=== PATIENT | male | born 1970 | race Caucasian/White ===

== ENCOUNTER 2020-03-02 14:19 | Emergency (ER) | payer BC, SELFPAY ==
[2020-03-02 14:51] VITALS: BP 137/58; PULSE 69; RESP 18; TEMP 36.4; O2SAT 99; BMI 29.9
--- NOTE | 2020-03-02 15:25 | HMH.EDUTC ---
[facility] [place] Clinical Impression: COVID-19 virus test result unknown Disposition: Home, Self-Care Condition on Discharge: Good Instructions: Preventing the Spread of Coronavirus Discharge Instructions Additional Instructions: self quarantine until test result are known Referrals: Allan Reeves [Primary Care Provider] - Time of Disposition: 15:28 Medical Decision Making - Ruben Inquiry Pt receiving controlled substance: No Vital Signs: 03/02/20 14:51 Temperature 97.6 F Temperature Source Oral Pulse Rate [Radial] 69 Respiratory Rate 18 Blood Pressure [Right Arm] 137/58 L Blood Pressure Mean [Right Arm] 84 Blood Pressure Source [Right Arm] Automatic Cuff Blood Pressure Position [Right Arm] Sitting 02 Sat by Pulse Oximetry 99 Oxygen Delivery Method Room Air Orders (Tests/Meds): ORDERS Category Date Time Status Coronavirus 19 Swab (OUTPT) Routine Lab 03/02/20 14:30 Ordered Rapid Coronavirus-19 IgG/IgM Stat Lab 03/02/20 15:00 [place] [facility] [place] - General Chief complaint: [facility] Stated complaint: Wants COVID testing Time Seen by Provider: 03/02/20 15:25 Mode of Arrival: Ambulatory Source of Information: Patient Limitations: No Limitations Description of Symptoms (Recalled from Triage Doc. by RN): covid screening HEENT Symptoms (Recalled from RN notes): No Resp Symptoms (Recalled from RN notes): No Skin Symptoms (Recalled from RN notes): No MS Symptoms (Recalled from RN notes): No Functional Status (Recalled from RN notes): wnl - History of Present Illness Provider Complaint: 49 yr old male presents for covid testing. pt was exposed by a co worker. pt states no symptoms at this time - Related Data Allergies Allergy/AdvReac Type Severity Reaction Status Date / Time No Known Allergies Allergy Verified 03/02/20 14:58 - Worker's Comp Is this a Worker's Comp case?: No [facility] History - Hepatitis A Screen Drug use history?: No High risk sexual behaviors?: No History of sexually transmitted infection?: No Currently employed?: No Childcare worker?: No Do you have indoor plumbing?: Yes Do you have electricity?: Yes Attestation statement:: This patient has been screened for Hepatitis A risk factors. I have reviewed the patient's past medical history: Yes - Social History Alcohol Intake: never Occupational Status: employed Housing: house ROS Obtained: Yes Systems reviewed as appropriate & no additional complaints - Constitutional Constitutional: Reports system reviewed and no additional complaints, except as docu, Denies fever(s) - Eyes Eyes: Reports system reviewed and no additional complaints, except as docu, Denies change in vision - ENT Ears, Nose, Mouth, and Throat: Reports system reviewed and no additional complaints, except as docu, Denies neck pain, Denies sore throat - Cardiovascular Cardiovascular: Reports system reviewed and no additional complaints, except as docu, Denies leg edema - Respiratory Respiratory: Yes system reviewed and no additional complaints, except as docu, No dyspnea on exertion - Gastrointestinal Gastrointestingal: Reports: system reviewed and no additional complaints, except as docu. Denies: coffee ground emesis - Genitourinary Male Genitourinary: Reports system reviewed and no additional complaints, except as docu - Musculoskeletal Musculoskeletal: Reports system reviewed and no additional complaints, except as docu, Denies joint swelling - Integumentary/Breasts Skin/Breast: Reports system reviewed and no additional complaints, except as docu, Denies skin swelling - Neurologic Neurologic: Reports system reviewed and no additional complaints, except as docu, Denies restless legs - Endocrine Endocrine: Reports system reviewed and no additional complaints, except as docu, Denies change in libido - Hematologic/Lymphatic Henatologic/Lymphatic: Reports system reviewed and no additional complaints, except as doc
[2020-03-02 15:48] VITALS: BP 137/58; PULSE 69; RESP 18; TEMP 36.4; O2SAT 99
[2020-03-02 15:49] LABS: Coronavirus 19 IgG Antibody Negative (Negative); Coronavirus 19 IgM Antibody Negative (Negative)
== END 2020-03-02 15:50 | disposition home or self-care (01) ==
PROVIDERS: Emergency Provider Nurse Practitioner Family; PCP Family Medicine
DX: Z20.828 Contact with and (suspected) exposure to other viral communicable diseases (principal)
CPT/HCPCS: 86328; 99201; U0003